=== PATIENT | male | born 1945 | race Caucasian/White ===

== ENCOUNTER 2016-11-08 10:18 | Inpatient (IN) ==
[2016-11-08] MEDS ORDERED: NITROGLYCERIN 2% OINT 1 INCH/GM PACK TOP STA (10:48)
[2016-11-08] MEDS ORDERED: MORPHINE 2 MG/1 ML SYRINGE IV PRN ×2 (10:48→14:57)
[2016-11-08] MEDS ORDERED: ASPIRIN 325 MG TABLET PO STA (10:48)
[2016-11-08] MEDS ORDERED: ONDANSETRON 4 MG/2 ML VIAL IV PRN ×2 (10:48→14:57)
[2016-11-08] MEDS ORDERED: NITROGLYCERIN SL 0.4 MG TABLET SL PRN (10:48)
[2016-11-08] MEDS ORDERED: ENOXAPARIN 100 MG/ML SYRINGE SUBCUT STA (10:48)
--- NOTE | 2016-11-08 10:51 | EKG Report ---
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
--- NOTE | 2016-11-08 10:54 | Emergency Department Note ---
Arrival - Arrival Chief Complaint: Chest Pain Stated Complaint: CHEST PAIN, SOB, CHEST PRESSURE ED Nursing Triage Note: Pt c/o Chest pressure, SOB, palpitations, and Dizziness x 1 month sent from [facility] for eval. Mode of Arrival: Ambulatory Time Seen by Provider: 11/08/16 10:48 - History of Present Illness Allergies/Adverse Reactions: Allergies Allergy/AdvReac Type Severity Reaction Status Date / Time IVP Dye Allergy ANAPHYLAXIS Uncoded 11/08/16 10:32 Medical,Surgical,& Family Hx - Medical History Cardio: History of: CAD Musculoskeletal: History of: Back/Neck Problems - Surgical History Cardiac Surgeries: Sugical HX of: Cardiac Catheterization (Stent) Abdominal Surgeries: Surgical HX of: Cholecystectomy Orthopedic Surgeries: Surgical HX of;: Spinal Surgery (back and neck surgery) - Social History Smoking Status: Never smoker Exam Vital Signs: Vital Signs Temperature 97.3 F L 11/08/16 10:44 Pulse Rate 60 11/08/16 10:44 Respiratory Rate 20 11/08/16 10:45 Blood Pressure 137/84 11/08/16 10:44 O2 Sat by Pulse Oximetry 99 11/08/16 10:28 Results - Labs Lab Results: I have reviewed the patients labs - EKG EKG results: interpreted by ERMD - Impressions EKG: Sinus bradycardia with a rate of 59, normal ST-T waves, normal axis. - Diagnostic Findings Procedure: Chest x-ray: image reviewed by me Disposition Clinical Impression: Coronary artery disease, Chest pain Case discussed with: patient, patient's family Disposition: Still a Patient Condition: Stable
--- NOTE | 2016-11-08 10:57 | Emergency Department Note ---
Jesusita Carmona Emily, am scribing for, and in the presence of, Keo Castle MD 10:56. Corrine Carmona James D, MD, personally performed the services described in this documentation, ascribed by Susan Mc in my presence, and it is both accurate and complete . Arrival - Arrival Chief Complaint: Chest Pain Stated Complaint: CHEST PAIN, SOB, CHEST PRESSURE ED Nursing Triage Note: Pt c/o Chest pressure, SOB, palpitations, and Dizziness x 1 month sent from [facility] for eval. Mode of Arrival: Ambulatory Limitations: No Limitations Source: Patient - History of Present Illness HPI Narrative: Pt is a 71 y/o male who came to ED with c/o chest tightness in ED but onset one month ago, but sent from [facility] for evaluation. Pt notes pain is sharp and has been intermittently. Pt denies smoking, DM, HTN. Pt states has no PCP. Pt states having chest pain with SOB, dizziness, and rapid palpitations during episode of pain. PMHx of stent done at [place] under supervision of Dr. Lilly in 2006. FMHx of mother had CAD in her 50-60s. Onset (ago): month(s) Consistency: intermittent Severity: mild, moderate Severity scale (1-10): 4 Quality: other (tightness) Allergies/Adverse Reactions: Allergies Allergy/AdvReac Type Severity Reaction Status Date / Time IVP Dye Allergy ANAPHYLAXIS Uncoded 11/08/16 10:32 Home Medications: Home Medications Medication Instructions Recorded Confirmed Type No Known Home Medications [No 11/08/16 11/08/16 History Known Home Medications] Review of System - Review of System 12 point system: reviewed and no additional remarkable complaints except as stated - Review of System Constitutional: Absent: fever Respiratory: Present: respiratory distress (SOB) Cardiovascular: Present: chest pain (tightness now in chest), palpitations ( rapid). Absent: dyspnea on exertion, syncope Gastrointestinal: Absent: abdominal pain, nausea, vomiting Musculoskeletal: Absent: arm pain, neck pain Skin: Absent: rash Neurological: Present: other (dizziness). Absent: headache Medical,Surgical,& Family Hx - Medical History Cardio: History of: CAD Musculoskeletal: History of: Back/Neck Problems - Surgical History Cardiac Surgeries: Sugical HX of: Cardiac Catheterization (Stent) Abdominal Surgeries: Surgical HX of: Cholecystectomy Orthopedic Surgeries: Surgical HX of;: Spinal Surgery (back and neck surgery) - Family History Family History: Reports;: Family Heart Disease (mother in her 50-60s with heart issues) - Social History Smoking Status: Never smoker Marital Status: Lives With:: Spouse Functional capacity: independent ambulation Exam Vital Signs: Vital Signs Temperature 97.3 F L 11/08/16 10:44 Pulse Rate 60 11/08/16 10:44 Respiratory Rate 20 11/08/16 10:45 Blood Pressure 137/84 11/08/16 10:44 O2 Sat by Pulse Oximetry 100 11/08/16 11:02 GENERAL: This is a well-nourished well-developed white male in no apparent distress. VITAL SIGNS: Reviewed HEENT: Head is atraumatic and normocephalic. Pupils are equal round react to light. Extraocular movements are intact. Oropharynx is benign with moist mucous membranes. NECK: Neck is soft and supple without tenderness. There are no masses. There is no lymphadenopathy. LUNGS: Lungs are clear to auscultation. Chest rises symmetrically. There is no chest wall tenderness. CV: Heart is regular rate and rhythm without murmurs rubs or gallops. ABDOMEN: Abdomen is soft, nontender to palpation. There are no abdominal abnormal masses palpated. There is no organomegaly. Bowel sounds are present and active. SKIN: Skin is warm and dry. No rash. EXTREMITIES: Patient has full range of motion without tenderness. There is no pedal edema. NEUROLOGIC: Awake alert and oriented 4. Cranial nerves II through XII are grossly intact. Motor is 5 over 5 in all extremities bilaterally. Course - Consultations Consultation #1: Discussed with hospitalist. Patient will be admitted to their service. Time: 12:45 Results - Labs CBC & BMP: 11/08/16 10:53 11/08/16 10:53 Lab Results: I have reviewed the patients labs Labs: Laboratory Tests 11/08/16 10:53 WBC 6.1 RBC 5.46 Hgb 16.2 Hct 47.0 MCV 86.1 L Plt Count 183 MPV 8.6 L Lymph % (Auto) 19.2 L Lymph # (Auto) 1.2 L Laboratory Tests 11/08/16 11/08/16 10:53 10:53 INR 1.0 PT Patient/Control Mix 11.1 Circ Anticoag PTT 28.4 Sodium 138 Potassium 4.6 Chloride 103 Carbon Dioxide 29 Anion Gap 10.6 BUN 16 Creatinine 1.10 GFR Calculation 83 BUN/Creatinine Ratio 14.00 Glucose 92 Calculated Osmolality 275.7 Calcium 8.9 Magnesium 2.4 Total Bilirubin 1.20 H AST 20 ALT 25 Alkaline Phosphatase 79 Total Protein 7.4 Albumin 4.0 Globulin 3.4 Albumin/Globulin Ratio 1.1 Lipase 184.0 Laboratory Tests 11/08/16 10:53 Troponin I < 0.015 - EKG EKG results: interpreted by ERMD - Impressions EKG: Sinus bradycardia with a rate of 59, nonspecific ST-T wave changes, normal axis. - Diagnostic Findings Procedure: Chest x-ray: image reviewed by me, report reviewed by me (No acute cardiopulmonary pathology identified. Coronary artery calcifications.) Disposition Clinical Impression: Coronary artery disease, Chest pain Disposition: Still a Patient Condition: Stable
[2016-11-08 11:06] LABS: Basophils % 0.7 % (0.0-0.8); Eosinophils # 0.2 10*3/uL (0.0-0.87); Eosinophils % 2.5 % (0.00-10.9); Hemoglobin 16.2 GM/DL (14.0-18.0); Immature Granulocytes % 0.2 %; Immature Granulocytes Absolute 0.01 #; Lymphocytes # 1.2 10*3/uL (1.4-4.0); Lymphocytes % 19.2 % (21.2-54.2); Mean Corpuscular HGB Conc 34.5 GM/DL (32-36); Mean Corpuscular Hemoglobin 30 PG (27-34); Mean Corpuscular Volume 86.1 FL (87-102); Mean Platelet Volume 8.6 FL (9.6-12.0); Monocytes # 0.5 10*3/uL (0.11-0.8); Monocytes % 8.2 % (1.7-12.7); Neutrophils # 4.2 10*3/uL (1.4-7.4); Neutrophils % 69.2 % (38.7-73.9); Platelet Count 183 T/CUMM (130-400); Red Blood Count 5.46 MC/CUMM (3.8-5.5); Red Cell Distribution Width 12.6 % (9.3-17.3); White Blood Count 6.1 T/CUMM (4-12)
[2016-11-08] MEDS ORDERED: ONDANSETRON 4 MG/2 ML VIAL ONE (11:06)
[2016-11-08] MEDS ORDERED: NITROGLYCERIN 2% OINT 1 INCH/GM PACK TOP ONE (11:06)
[2016-11-08] MEDS ORDERED: ASPIRIN 325 MG TABLET ONE (11:06)
[2016-11-08] MEDS ORDERED: ENOXAPARIN 100 MG/ML SYRINGE SUBCUT ONE (11:06)
[2016-11-08] MEDS ORDERED: MORPHINE 2 MG/1 ML SYRINGE ONE (11:06)
--- NOTE | 2016-11-08 11:22 | XRay Report ---
XR chest 2V Date: 11/08/2016 10:48 AM History: Chest pain Comparison: 05/05/2012 Technique: PA and lateral chest Findings: The heart is normal in size with coronary artery calcifications. Chronic scarring in the lungs with stable mediastinum. Degenerative changes with prior anterior cervical fusion. Impression: No acute cardiopulmonary pathology identified. Coronary artery calcifications. PROCEDURE INTERPRETED AT [facility] DEPARTMENT OF RADIOLOGY Final Report Signed by: Dr. Che Rg
[2016-11-08 11:40] LABS: Bilirubin,Total 1.2 MG/DL (0.2-1.0); Calcium 8.9 MG/DL (8.5-10.1); Magnesium 2.4 MG/DL (1.8-2.4); Osmolality,Calculated 275.7 MOS/KG (273-304); Potassium 4.6 MMOL/L (3.5-5.1); Total Protein 7.4 G/DL (6.4-8.3)
[2016-11-08 11:41] LABS: PT Patient Result 11.1 SECS; Partial Thromboplastin Time 28.4 SECS (0-40)
--- NOTE | 2016-11-08 13:50 | EKG Report ---
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
--- NOTE | 2016-11-08 13:50 | Hospitalist History & Physical ---
<Zonia Reed - Last Filed: 11/08/16 13:37> Assessment and Plan - Time spent with patient Time spent with patient: Greater than 30 minutes (1) Chest pain Status: Acute Assessment and plan: 11/08/16 Admit Supplemental Oxygen PRN Pain management Consult Cardiology Serial Troponin Repeat EKG Repeat A.m. Labs Will discuss with Dr Vieyra for further recommendations of care to follow. Current Visit: Yes (2) Coronary artery disease Status: Acute Assessment and plan: Stent x1 placed in 2006. Consult Cardiology. Current Visit: Yes History of Present Illness Chief complaint: chest tightness History of present illness: Mr. Baumann is a 71 year old white male w/PMHx Hiatal hernia and Cardiac stent x1 (2206) presented to the ED for further evaluation of 1 month of chest tightness associated with occasional chest pain and shortness of breath. He reports the tightness occurs at rest and with exertion. He reports an increase in swelling in his feet for the past month. He denies nausea, vomiting, fever, chills or cough. He reports heart catherization was done at [place] by Dr Lilly in 2006 with stent placement x1. Reports: Former smoker (quit 30 years ago), occasional glass of wine, and denies any drug use. 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 IN ED: EKG: Sinus bradycardia with rate 59. CXR: nothing acute. Troponin negative. Electrolytes within normal range. Renal function stable: BUN 16, Creatinine 1.10. He does not have a Primary Care Physician He does not follow with a ed tech. (it has been several years ago [id number] ?since he has seen Dr Lilly) After discussion with Dr Castle in the ED and Dr Vieyra with Hospital Medicine, it was agreed to admit patient for further evaluation of chest tightness and shortness of breath. There are NO home medications to be reviewed or reconciled. Patient reports he takes a Tums occasionally for acid reflux and he takes an Aspirin when he remembers but does not remember very often (been over a month since last ASA taken). Home Medications Medication Instructions Recorded Confirmed Type No Known Home Medications [No 11/08/16 11/08/16 History Known Home Medications] Allergies Allergy/AdvReac Type Severity Reaction Status Date / Time IVP Dye Allergy ANAPHYLAXIS Uncoded 11/08/16 10:32 Medical,Surgical,& Family Hx - Medical History Cardio: History of: CAD (Stent x1 placed in 2006) Gastrointestinal: History of: GI Problems (Hiatal Hernia) Musculoskeletal: History of: Back/Neck Problems - Surgical History Cardiac Surgeries: Sugical HX of: Cardiac Catheterization (Stent x1 (2006)) Abdominal Surgeries: Surgical HX of: Cholecystectomy Orthopedic Surgeries: Surgical HX of;: Spinal Surgery (back and neck surgery) - Family History Family History: Reports;: Family Heart Disease (mother in her 50-60s with heart issues, Brother and sister = CHF) - Social History Smoking Status: Former smoker (Quit Smoking 30 years ago) Frequency of Alcohol Use: Rarely (Glass of wine very rare) Type of Drug Use: None Marital Status: Lives With:: Spouse Functional capacity: independent ambulation 12 point system: reviewed and no additional remarkable complaints except as stated Exam - Constitutional Vitals: Period Temp Pulse Resp BP Sys/Cuevas Pulse Ox Last 24 Hr 97.3 F-97.3 F 60-60 20-20 137-137/84-84 99-100 General appearance: normal weight, no acute distress - Head Head exam: Present: normal inspection - Eye Eye exam: Present: EOMI, other (Wear Glasses) Pupils: Present: JERARDO - Neck Neck exam: Present: normal inspection. Absent: thyromegaly - Respiratory Respiratory exam: Present: clear to auscultation bilaterally. Absent: rhonchi, stridor, wheezes - Cardiovascular Cardiovascular exam: Present: regular rate and rhythm - GI/Abdominal GI/Abdominal exam: Present: normal bowel sounds, soft. Absent: tenderness, rebound - Extremities Exam Extremities exam: Present: normal inspection, full ROM, edema (trace) - Neurological Exam Neurological exam: Present: alert, oriented X3 - Psychiatric Psychiatric exam: Present: normal affect, normal mood. Absent: agitated, anxious - Skin Skin exam: Present: normal color, warm, dry Results - Labs CBC & BMP: 11/08/16 10:53 11/08/16 10:53 Lab Results: I have reviewed the past 24 hour labs - EKG EKG results: interpreted by SHARAD <Elan Vieyra - Last Filed: 11/08/16 16:13> History of Present Illness History of present illness: Patient seen and examined independently of YARD FOREMAN Reed, agree with history, assessment and plan as documented. Patient reports chest tightness ongoing for over a month, he denies any worsening of this pain to me today. He does reports having a stent placed in 2006. He also reports taking lipitor and being taken off due to elevated liver enzymes. He also reports daily bilateral lower extremity edema. Troponin negative x2. Given his history, will consult cardiology. Exam - Constitutional Vitals: Period Temp Pulse Resp BP Sys/Cuevas Pulse Ox Last 24 Hr 97.3 F-97.8 F 60-61 18-20 111-137/72-84 95-100 Results - Labs CBC & BMP: 11/08/16 10:53 11/08/16 10:53
[2016-11-08] MEDS ORDERED: ACETAMINOPHEN 325 MG TABLET PO PRN (14:57)
[2016-11-08 15:33] LABS: Risk Ratio 4.69; VLDL CHOLESTEROL 18.4 MG/DL
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
[2016-11-08] MEDS: SODIUM CHLORIDE 0.9% 1,000 ML IV SCH (16:04)
[2016-11-08 16:49] LABS: Troponin I Only < 0.015 NG/ML (0.00-0.045)
[2016-11-08] MEDS ORDERED: diphenhydrAMINE CAP 25 MG CAPSULE PO ONE (17:01)
[2016-11-08] MEDS ORDERED: MAGNESIUM SULF RIDER 2 GM in PREMIX 1 EACH IV PRN ×2 (17:01→17:35)
[2016-11-08] MEDS ORDERED: DIAZEPAM 5 MG TABLET PO ONE (17:01)
[2016-11-08] MEDS ORDERED: POTASSIUM CHLORIDE RIDER 10 MEQ in PREMIX 1 EACH IV PRN ×2 (17:01→17:35)
--- NOTE | 2016-11-08 17:33 | History and Physical Update ---
Sedation H&P Update - History and Physical H&P was reviewed, the patient examined and there: are no changes in the patients condition since last H&P was completed. - Dictation Physical: refer to H&P completed by admitting physician - Physical Exam Mental Status: alert and oriented Heart: regular rate and rhythm Lung: clear to auscultation Abdomen: within normal limits Vitals: within normal limits - Sedation Plan for Sedation: moderate Patient Consent: Procedure disscussed with patient and patinet has consented., Risks and benefits were discussed with patient,including infection,, bleeding, injury to surrounding structures, seizure, temporary nerve, Patient understands and accepts potential risks/benefits and agrees to, proceed. ASA Class: II Airway Assessment: Class II: Soft palate, uvula, fauces visible
[2016-11-08 17:53] LABS: INR 1.1; PT Patient Result 11.3 SECS
[2016-11-08 19:22] LABS: Troponin I Only < 0.015 NG/ML (0.00-0.045)
[2016-11-08] MEDS: ROSUVASTATIN 20 MG TABLET PO SCH (21:10)
[2016-11-08 22:20] LABS: Troponin I Only < 0.015 NG/ML (0.00-0.045)
[2016-11-09] MEDS: SODIUM CHLORIDE 0.9% 1,000 ML IV SCH ×2 (02:08→16:09)
[2016-11-09] MEDS: ROSUVASTATIN 20 MG TABLET PO SCH ×2 (02:18→21:47)
[2016-11-09 06:11] LABS: Basophils % 0.7 % (0.0-0.8); Eosinophils # 0.2 10*3/uL (0.0-0.87); Eosinophils % 3.9 % (0.00-10.9); Hematocrit 41.6 VOL% (42.0-52.0); Hemoglobin 14.6 GM/DL (14.0-18.0); Immature Granulocytes % 0.2 %; Immature Granulocytes Absolute 0.01 #; Lymphocytes % 17.5 % (21.2-54.2); Mean Corpuscular HGB Conc 35.1 GM/DL (32-36); Mean Corpuscular Hemoglobin 31 PG (27-34); Mean Corpuscular Volume 86.8 FL (87-102); Mean Platelet Volume 9.1 FL (9.6-12.0); Monocytes # 0.6 10*3/uL (0.11-0.8); Monocytes % 9.9 % (1.7-12.7); Neutrophils % 67.8 % (38.7-73.9); Platelet Count 171 T/CUMM (130-400); Red Blood Count 4.79 MC/CUMM (3.8-5.5); Red Cell Distribution Width 12.5 % (9.3-17.3); White Blood Count 5.9 T/CUMM (4-12)
[2016-11-09 06:51] LABS: Albumin 3.4 G/DL (3.4-5.0); Bilirubin,Total 0.8 MG/DL (0.2-1.0); Calcium 8.4 MG/DL (8.5-10.1); Osmolality,Calculated 280.4 MOS/KG (273-304); Potassium 4.8 MMOL/L (3.5-5.1); Total Protein 6.1 G/DL (6.4-8.3)
--- NOTE | 2016-11-09 07:32 | EKG Report ---
Stationary ECG Study [facility] Test Date: 11/09/2016 7:30:24 AM Pat Name: BELINDA YODER Department: Room: 279 Gender: M Pharmacy Affairs Assistant: SAE : 1945 Requested by: Zonia Reed Order Number: [id number] Reading MD: SHARON VARGAS Intervals [place] Rate: 57 P: 34 CT: 137 QRS: 71 QRSD: 91 T: -7 QT: 400 QTc: 395 Interpretive Statements SINUS RHYTHM Electronically Signed On 11-10-16 15:39:06 CDT by SHARON VARGAS [email or web address]
[2016-11-09] MEDS ORDERED: diphenhydrAMINE CAP 25 MG CAPSULE PO ONE (08:00)
[2016-11-09] MEDS ORDERED: DIAZEPAM 5 MG TABLET PO ONE (08:00)
--- NOTE | 2016-11-09 08:02 | EKG Report ---
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
[2016-11-09] MEDS: PANTOPRAZOLE 40 MG TABLET PO SCH (08:54)
[2016-11-09] MEDS: ASPIRIN EC 81 MG TABLET PO SCH (08:54)
[2016-11-09] MEDS ORDERED: LIDOCAINE 1% 20 ML VIAL ONE (09:16)
[2016-11-09] MEDS ORDERED: HEPARIN/NACL 0.9% 2 UNITS/ML 1,000 ML IV ONE (09:16)
[2016-11-09] MEDS ORDERED: MIDAZOLAM 2 MG/2 ML VIAL ONE (09:31)
[2016-11-09] MEDS ORDERED: HYDROmorphone 2 MG/1 ML VIAL ONE (09:31)
[2016-11-09] MEDS ORDERED: diphenhydrAMINE 50 MG/1 ML VIAL ONE (09:36)
[2016-11-09] MEDS ORDERED: BIVALIRUDIN 250 MG VIAL IV ONE (10:06)
[2016-11-09] MEDS ORDERED: TICAGRELOR 90 MG TABLET ONE (10:40)
[2016-11-09] MEDS ORDERED: ZALEPLON 5 MG CAPSULE PO PRN (11:04)
--- NOTE | 2016-11-09 11:04 | Cardiac Catheterization ---
Date of Procedure:: 11/09/16 Pre-op Diagnosis: Chest pain CAD Post-op diagnosis: same Procedure: Cardiac catheterization procedure note #1 left heart catheterization #2 selective coronary angiography #3 left ventriculography #4 successful proximal LAD stent 2 Omnipaque was used to proceed Description of procedure Following sterile preparation draping of the right groin, local anesthesia was achieved by infiltration with 1% Xylocaine. Using a Cook needle the right femoral artery was cannulated and a #6 sheath was inserted. A 6 [place] pigtail catheter was introduced and advanced retrograde across aortic valve into the left pedicle and the end-diastolic pressure was recorded. Left ventriculography was performed the WATTERS projection using 24 cc of contrast. A pullback was made across aortic valve. The pigtail catheter change for a 6 [place] left Kayleigh catheter and left coronary angiography was performed in several WATTERS and WOLOF projections. The catheter change for a 6 [place] right Amplatz catheter and right coronary angiography was performed in the WOLOF projection only. The catheter change for a 6 [place] left Kayleigh guiding catheter in the left main was recannulated. The patient was bolused with Angiomax and placed on infusion per protocol. A Sure Chill-water flex wire was used and carefully advanced into the distal LAD. Direct stenting was performed using a 3.25 x 18 and 3.25 x 15 mL Alpine Zions drug-eluting stent in overlapping fashion. The maximum patient pressure was 17 temperatures for 30 seconds, creating a 3.50 mm lumen. The balloon was then deflated and brought back into the guiding catheter going to guidewire across the lesion. Repeat angiography in WATTERS and WOLOF projection confirmed a widely patent vessel with mild residual narrowing, no dissection, and brisk runoff. The guiding catheter and sheath were then removed and the femoral arteriotomy site was sealed percutaneous a minx closure device with prompt cessation of bleeding and prompt return of normal for pulses. The patient transferred back to telemetry in stable condition. Hemodynamic data Aortic pressure 107/60 mean of 82 Left ventricle 107/12 Selective coronary angiography The left main trunk is widely patent bifurcates. The LAD is a large vessel wraps on the apex. There is long 80% in-stent restenosis in the proximal vessel. The small diagonal branch is patent. The circumflex system has mild diffuse irregularities only. The dominant coronary artery is widely patent with mild diffuse disease only. Left ventriculography Ejection fraction 50% with low normal systolic function. No wall motion abnormalities. No mitral regurgitation. Conclusions #1 LVEDP 12 #2 ejection fraction 50% no wall motion abnormalities #3 no mitral regurgitation #4 no aortic valve gradient #5 left main trunk-patent #6 LAD-long 80% in-stent restenosis proximal vessel #7 diagonal-small, patent #8 circumflex system-mild irregularities #9 dominant right coronary-mild irregularities #10 successful proximal LAD stent 2 for severe in-stent restenosis. A 3.25 x 18 and 3.25 x 15 mm Zions drug-eluting stents were placed in overlapping fashion. The maximum inflation pressure was 17 shlomo for 30 seconds, creating a 3.50 mm lumen. Excellent angiographic result obtained. Disposition The patient status post LAD stents 2006 at [place]. He presents with recurrent angina and has long in-stent restenosis. The proximal LAD was restented with a 3.25 x 18 and 3.25 x 15 mm Alpine Zions drug-eluting stents in overlapping fashion. The maximum inflation pressure was 17 shlomo for 30 seconds, creating a 3.50 mm lumen. Excellent result obtained. He remain on normal saline hydration and time will continue aspirin Brilinta and statin therapy. A BMP CPK troponin rechecked in the morning. Cine pictures were reviewed with his . In addition, he will require aggressive lifestyle changes and risk factor modification. Implants: Successful approximately stent 2 for severe in-stent restenosis. 3.25 x 18 and 3.25 x 15 mm Alpine Zions drug-coated stents, Post dilated 17 shlomo, creating a 3.50 mm lumen. Good result obtained. Anesthesia: moderate conscious sedation Surgeon / Physician: Omar Nguyen Estimated blood loss: minimal Condition: stable Disposition: floor - Medications / Follow-up
--- NOTE | 2016-11-09 11:19 | EKG Report ---
Stationary ECG Study [facility] Test Date: 11/09/2016 11:18:17 AM Pat Name: BELINDA YODER Department: Room: 279 Gender: M Care Rep: OSMIN : 1945 Requested by: Sharon Nguyen Order Number: [id number] Reading MD: SHARON NGUYEN Intervals [place] Rate: 51 P: 28 CT: 153 QRS: 59 QRSD: 105 T: 43 QT: 412 QTc: 388 Interpretive Statements SINUS BRADYCARDIA Electronically Signed On 11-10-16 15:45:32 CDT by SHARON NGUYEN [id number]
--- NOTE | 2016-11-09 16:04 | Hospitalist Progress Note ---
Assessment and Plan (1) Coronary artery disease Status: Chronic Assessment and plan: S/p LAD stent in 2006 Cath today with restenosis of LAD, drug eluting stent today On Brilinta Cardiology managing Current Visit: Yes (2) Chest pain Status: Resolved Current Visit: Yes (3) Dyslipidemia Status: Acute Current Visit: Yes Hospitalist: Subjective Interval history: No acute events overnight. Patient seen after his heart cath today. He denies chest pain and sob. Exam - Constitutional Vitals: Period Temp Pulse Resp BP Sys/Cuevas Pulse Ox Last 24 Hr 97.1 F-98.0 F 52-62 16-20 96-127/49-78 90-98 General appearance: normal weight - Head Head exam: Present: normocephalic, atraumatic - Eye Eye exam: Present: EOMI Pupils: Present: JERARDO - ENT ENT exam: Present: normal exam - Neck Neck exam: Present: normal inspection - Respiratory Respiratory exam: Present: clear to auscultation bilaterally. Absent: rhonchi, wheezes - Cardiovascular Cardiovascular exam: Present: regular rate and rhythm - GI/Abdominal GI/Abdominal exam: Present: normal bowel sounds, soft. Absent: tenderness, rebound - Extremities Exam Extremities exam: Present: normal inspection - Back Exam Back exam: Present: normal inspection - Neurological Exam Neurological exam: Present: alert, oriented X3 - Psychiatric Psychiatric exam: Present: normal affect, normal mood - Skin Skin exam: Present: warm, intact Results - Labs CBC & BMP: 11/09/16 05:15 11/09/16 05:15 Specialty Discharge - Follow Up or Referrals
--- NOTE | 2016-11-09 17:33 | ECHO Report ---
Felicitas Baumann Exam Date: 11/09/2016 07:32 Referring Physician: Technologist: Jessica Ayala RDCS Age: 71 Ht (in): 68 Wt (lb): 221 Gender: M Exam Location: [facility] Echo Indications: Chest pain, unspecified, CAD with previous stent, Dyslipidemia BP: 113 / 58 HR: 60 Rhythm: Sinus Technical Quality: Very technically difficult study IMPRESSIONS Very technically difficult study. Left ventricular ejection fraction is estimated at 60 %. Mild concentric left ventricular hypertrophy. The right heart appears mildly enlarged. Mild tricuspid valve regurgitation. MEASUREMENTS (Male / Female) Normal Values 2D ECHO LV Diastolic Diameter PLAX 4.0 cm 4.2 - 5.9 / 3.9 - 5.3 cm LV Systolic Diameter PLAX 2.7 cm LV Fractional Shortening PLAX 32.1 % IVS Diastolic Thickness 1.3 cm 0.6 - 1.0 / 0.6 - 0.9 cm LVPW Diastolic Thickness 1.3 cm 0.6 - 1.0 / 0.6 - 0.9 cm RV Internal Dim ED PLAX 3.8 cm Aortic Root Diameter 3.3 cm LA Systolic Diameter LX 3.8 cm 3.0 - 4.0 / 2.7 - 3.8 cm DOPPLER TR Peak Velocity 288.0 cm/s TR Peak Gradient 33.2 mmHg FINDINGS Left Ventricle Normal left ventricular cavity size. Mild concentric left ventricular hypertrophy. Left ventricular ejection fraction is estimated at 60 %. Right Ventricle Mildly increased right ventricular size. Right Atrium The right atrium is mildly enlarged. Left Atrium The left atrium is normal in size. Mitral Valve Grossly normal mitral valve without significant stenosis or prolapse. There is no mitral regurgitation. Aortic Valve Grossly normal aortic valve without significant sclerosis or stenosis. There is no aortic regurgitation. Tricuspid Valve Grossly normal tricuspid valve. Mild tricuspid valve regurgitation. Tricuspid regurgitation velocities suggest a PAP of 43 mmHg. Pulmonic Valve Morphologically normal pulmonic valve without significant stenosis. There is no pulmonic regurgitation. Pericardium Normal pericardium without effusion. Aorta Normal ascending aorta dimension. Breezy Diane (Electronically Signed) Final Date: 09 November 2016 17:32
[2016-11-09] MEDS: TICAGRELOR 90 MG TABLET PO SCH (21:42)
[2016-11-10 05:59] LABS: Basophils % 0.5 % (0.0-0.8); Eosinophils # 0.3 10*3/uL (0.0-0.87); Eosinophils % 3.2 % (0.00-10.9); Hematocrit 42.2 VOL% (42.0-52.0); Hemoglobin 14.8 GM/DL (14.0-18.0); Immature Granulocytes % 0.4 %; Immature Granulocytes Absolute 0.03 #; Lymphocytes # 1.3 10*3/uL (1.4-4.0); Lymphocytes % 16.2 % (21.2-54.2); Mean Corpuscular HGB Conc 35.1 GM/DL (32-36); Mean Corpuscular Hemoglobin 30 PG (27-34); Mean Corpuscular Volume 85.6 FL (87-102); Mean Platelet Volume 9.2 FL (9.6-12.0); Monocytes # 0.7 10*3/uL (0.11-0.8); Monocytes % 9.3 % (1.7-12.7); Neutrophils # 5.5 10*3/uL (1.4-7.4); Neutrophils % 70.4 % (38.7-73.9); Platelet Count 187 T/CUMM (130-400); Red Blood Count 4.93 MC/CUMM (3.8-5.5); Red Cell Distribution Width 12.6 % (9.3-17.3); White Blood Count 7.8 T/CUMM (4-12)
[2016-11-10 06:28] LABS: Calcium 8.6 MG/DL (8.5-10.1); Magnesium 2.4 MG/DL (1.8-2.4); Osmolality,Calculated 281.3 MOS/KG (273-304); Potassium 4.1 MMOL/L (3.5-5.1)
[2016-11-10 06:38] LABS: Blood Urea Nitrogen 16 MG/DL (7-18); Calcium 8.6 MG/DL (8.5-10.1); Glucose 100 MG/DL (74-106); Osmolality,Calculated 279.4 MOS/KG (273-304); Sodium 140 MMOL/L (136-145)
[2016-11-10 06:39] LABS: Troponin I Only 0.063 NG/ML (0.00-0.045)
[2016-11-10] MEDS: SODIUM CHLORIDE 0.9% 1,000 ML IV SCH ×2 (07:53→07:54)
--- NOTE | 2016-11-10 07:58 | EKG Report ---
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
[2016-11-10] MEDS: PANTOPRAZOLE 40 MG TABLET PO SCH (09:08)
[2016-11-10] MEDS: TICAGRELOR 90 MG TABLET PO SCH (09:08)
[2016-11-10] MEDS: ASPIRIN EC 81 MG TABLET PO SCH (09:08)
--- NOTE | 2016-11-10 09:16 | Cardiology Progress Note ---
Assessment and Plan (1) Status post coronary artery stent placement Status: Acute Assessment and plan: SEE PLAN OF CARE LISTED BELOW Current Visit: Yes (2) Chest pain Status: Resolved Assessment and plan: SEE PLAN OF CARE LISTED BELOW. Current Visit: Yes (3) Coronary artery disease Status: Chronic Assessment and plan: SEE PLAN OF CARE LISTED BELOW. Current Visit: Yes (4) History of esophageal stricture Status: Chronic Assessment and plan: SEE PLAN OF CARE LISTED BELOW. Current Visit: Yes (5) Dyslipidemia Status: Acute Current Visit: Yes Cardiology - PN: Subj Interval history: MANAGER IMAGE: Jordy in remote past. New to [facility] cardiology, Dr. Diane PCP: None Mr. Baumann is a 71 year old male with known history of coronary artery disease , not routinely followed by cardiology. Patient has cardiac surgery significant for known CAD, advanced age, former smoker (quit 30 years ago) and obesity. Patient has a past medical history of hiatal hernia and esophageal stricture (reports that he last had his esophagus dilated 5 years ago). He does not have a PCP. Does not take any medications at home. Reports that he takes aspirin occasionally, when he remembers. He has not followed up with Dr. Lilly in several years. He does report that he had a Lexiscan nuclear stress test approximately 5 years ago at the [place]. Per his report, this was normal. He had an echocardiogram performed February 2013 which revealed preserved systolic function, ejection fraction estimated at 65%. Patient presented to [facility] with complaints of chest heaviness for the past couple of months that progressively worsened the past 4 weeks. Cardiac biomarkers negative. EKG benign. However, with patient's history of coronary artery disease it was felt that patient would best benefit from heart catheterization. Patient underwent heart catheterization November [address] Toribio Nguyen with the following impressions noted: Conclusions #1 LVEDP 12 #2 ejection fraction 50% no wall motion abnormalities #3 no mitral regurgitation #4 no aortic valve gradient #5 left main trunk-patent #6 LAD-long 80% in-stent restenosis proximal vessel #7 diagonal-small, patent #8 circumflex system-mild irregularities #9 dominant right coronary-mild irregularities #10 successful proximal LAD stent 2 for severe in-stent restenosis. A 3.25 x 18 and 3.25 x 15 mm Zions drug-eluting stents were placed in overlapping fashion. The maximum inflation pressure was 17 shlomo for 30 seconds, creating a 3.50 mm lumen. Excellent angiographic result obtained. DISPOSITION The patient status post LAD stents 2006 at [place]. He presents with recurrent angina and has long in-stent restenosis. The proximal LAD was restented with a 3.25 x 18 and 3.25 x 15 mm Alpine Zisheela drug-eluting stents in overlapping fashion. The maximum inflation pressure was 17 shlomo for 30 seconds, creating a 3.50 mm lumen. Excellent result obtained. He remain on normal saline hydration and time will continue aspirin Brilinta and statin therapy. A BMP CPK troponin rechecked in the morning. Cine pictures were reviewed with his . In addition, he will require aggressive lifestyle changes and risk factor modification. 2016 UPDATE: Patient was seen and examined on the telemetry unit. Post heart catheterization patient has done well without complications. He has been without complaints of chest pain, heaviness or tightness. He denies shortness of breath. Right groin is soft without bleeding, hematoma and bruit. Distal pulses 2+. Patient has ambulated around the room and down the fuentes without difficulty. Right groin has remained stable post ambulation. Right groin precautions have been reviewed with the patient. He verbalized understanding. I have also discussed the importance of absolute compliance with dual antiplatelet therapy. He has verbalized understanding. He has been given a written prescription for Brilinta with refills (1 year supply). Heart rate will not tolerate initiation of beta blockade. Hopeful that this can be initiated as an outpatient. Lipid panel was completed. LDL 156. Patient was started on statin this hospitalization. However, patient has declined this medication as he has had trouble with this in the past. He reports that he has had elevated liver enzymes. For this reason, patient refuses to take this medication. Statin can possibly be challenged as an outpatient. Patient is able for discharge home from a cardiac standpoint. Patient has been given a follow-up appointment with Dr. Diane in 2 weeks with EKG, BMP and CBC. IMPRESSION AND PLAN 1. STATUS POST PCI TO PROXIMAL LAD- Underwent heart catheterization yesterday per Dr. Toribio Nguyen. He received drug-eluting stent 2 to proximal LAD. Tolerated well. Continue dual antiplatelet therapy. He has been given a 1 year supply of Brilinta ([facility] Unable to tolerate beta-blockade and lipid-lowering agent as described above. Patient is stable to be discharged home from a cardiac standpoint. He has been given a follow-up appointment with Dr. Diane in 2 weeks with EKG, BMP and CBC. 2. HISTORY OF CAD - Per patient report, he has a history of CAD. Received coronary stent in [address] [facility]. 3. DYSLIPIDEMIA - Lipid panel has been reviewed. LDL is above goal. I have added Crestor. However, patient has refused to take this medication as he has had trouble with statins in the past. He reports that he has had elevated liver enzymes. For this reason, patient refuses to take this medication. Statin can possibly be challenged as an outpatient. 4. HISTORY OF ESOPHAGEAL STRICTURE - Patient may benefit from esophageal dilatation. Defer to attending. Exam (Progress Note) - Constitutional Vitals: Period Temp Pulse Resp BP Sys/Cuevas Pulse Ox Last 24 Hr 97.3 F-98.0 F 52-64 16-20 96-142/51-78 93-98 Exam: General: Appears well with no apparent distress. Pleasant and cooperative. Appears comfortable. Obese. HEENT: PERRL, normocephalic, atraumatic. Mucous membranes moist. No jaundice noted. Conjunctiva moist and clear, sclerae anicteric Neck: No JVD/HJR, no thyromegaly or lymphadenopathy noted. No carotid bruit appreciated Cardiac: Regular rate and rhythm. No murmur rub or gallop. Lungs: Clear to auscultation without accessory muscle use to assist the respiratory pattern. Not requiring oxygen. Abdomen: Soft, bowel sounds normoactive. Nontender and nondistended. No abdominal bruit or thrill noted. No masses noted. Extremities: No clubbing, cyanosis noted. No edema noted. Upper extremity pulses 2+. Lower extremity pulses 2+. Capillary refill less than 3 seconds. Right groin soft without bleeding, hematoma and bruit. Distal pulses 2+. Skin: No unusual lesions or rashes. No skin breakdown appreciated. Neuro: Awake, alert and oriented 3. Moves all extremities well without hemiparesis or paralysis. No essential tremor is appreciated. Result/EKG - Labs CBC & BMP: 11/10/16 05:11 11/10/16 05:12 Lab Results: I have reviewed the past 24 hour labs Labs: Laboratory Results - last 24 hr 11/10/16 11/10/16 11/10/16 05:11 05:11 05:12 WBC 7.8 D RBC 4.93 Hgb 14.8 Hct 42.2 MCV 85.6 L MCH 30 MCHC 35.1 RDW 12.6 Plt Count 187 MPV 9.2 L Neut % (Auto) 70.4 Lymph % (Auto) 16.2 L [place] % (Auto) 9.3 Eos % (Auto) 3.2 Baso % (Auto) 0.5 Neut # (Auto) 5.5 Lymph # (Auto) 1.3 L [place] # (Auto) 0.7 Eos # (Auto) 0.3 Baso # (Auto) 0.0 Immature Gran % 0.4 Nucleated RBC % 0.0 Immature Gran # 0.03 Nucleated RBCs # 0.00 Immature Plt Fraction 0.0 Sodium 141 140 Potassium 4.1 4.0 Chloride 106 105 Carbon Dioxide 27 28 Anion Gap 12.1 11.0 BUN 16 16 Creatinine 1.20 1.20 GFR Calculation 75 75 BUN/Creatinine Ratio 13.00 13.00 Glucose 102 100 Calculated Osmolality 281.3 279.4 Calcium 8.6 8.6 Magnesium 2.4 Total Creatine Kinase 62 D CK-MB (CK-2) 1.4 Troponin I 0.063 H D Specialty Discharge - Follow Up or Referrals Follow up with: Breezy Diane MD [Physician] - 2 Weeks (ekg, cbc, bmp )
--- NOTE | 2016-11-10 11:00 | Discharge Summary ---
Hospital Course - Hospital Course Hospital Course: 71 year old white male w/PMHx Hiatal hernia and Cardiac stent x1 (2006) presented to the ED for further evaluation of 1 month of chest tightness associated with occasional chest pain and shortness of breath. He was admitted to the hospitalist service for further evaluation. Serial troponins were negative x3. Cardiology was consulted given his history. Cardiac cath with in- stent restenosis, his proximal LAD was restented with drug-eluting stents. He was started on Brilinta. Patient has a history of liver enzyme elevation on statins. Cardiology attempted to start him on a statin, which he refused for this reason. Patient's heart rate will not tolerate the initiation of a beta jenny. He has now reached maximal benefit of inpatient stay and will be discharged to home. - Time spent with patient Time with patient DS: Greater than 30 minutes (35) Diagnosis - Discharge Diagnosis (1) Coronary artery disease Status: Chronic (2) Chest pain Status: Resolved (3) Dyslipidemia Status: Chronic Specialty Discharge - Follow Up or Referrals Follow up with: Breezy Diane MD [Physician] - 2 Weeks (ekg, cbc, bmp ) Discharge Plan - Discharge Data Disposition: Disch To Home/Self Care Condition at Discharge: Stable Discharge Diet: heart healthy Activity: increase activity as tolerated Hygiene: no restrictions Weight Bearing at Discharge: weight bear as tolerated Driving: no restrictions Contact your physician if you experience:: Shortness of breath, pain uncontrolled by pain medications - Discharge Medications New Aspirin EC Tab 81 mg PO DAILY tablet Nitroglycerin Sl Tab [Nitrostat] 0.4 mg SL Q5M PRN #30 tablet PRN Reason: Chest Pain Ticagrelor [Brilinta] 90 mg PO BID tablet - Follow Up or Referral Follow Up: Breezy Diane MD [Physician] - 2 Weeks (ekg, cbc, bmp ) - Forms/Instructions Instructions: Coronary Artery Disease (GEN), Left Heart Catheterization (DC), Heart Healthy Diet (GEN), Coronary Intravascular Stent Placement (DC) Exam - Constitutional Vitals: Period Temp Pulse Resp BP Sys/Cuevas Pulse Ox Last 24 Hr 97.3 F-98.0 F 52-64 16-20 96-142/51-78 93-98 General appearance: over weight - Head Head exam: Present: normocephalic, atraumatic - Eye Eye exam: Present: EOMI Pupils: Present: JERARDO - ENT ENT exam: Present: normal exam - Neck Neck exam: Present: normal inspection - Respiratory Respiratory exam: Present: clear to auscultation bilaterally. Absent: rhonchi, wheezes - Cardiovascular Cardiovascular exam: Present: regular rate and rhythm - GI/Abdominal GI/Abdominal exam: Present: normal bowel sounds, soft. Absent: tenderness, rebound - Extremities Exam Extremities exam: Present: normal inspection - Back Exam Back exam: Present: normal inspection - Neurological Exam Neurological exam: Present: alert, oriented X3 - Psychiatric Psychiatric exam: Present: normal affect, normal mood - Skin Skin exam: Present: warm, intact Discharge Results Procedures and tests throughout hospitalization: Pending Orders 11/08/16 10:48 Urinalysis Stat Labs on day of discharge: Labs from last 24 hours 11/10/16 11/10/16 11/10/16 05:12 05:11 05:11 WBC 7.8 D RBC 4.93 Hgb 14.8 Hct 42.2 MCV 85.6 L MCH 30 MCHC 35.1 RDW 12.6 Plt Count 187 MPV 9.2 L Neut % (Auto) 70.4 Lymph % (Auto) 16.[address] [place] % (Auto) 9.3 Eos % (Auto) 3.2 Baso % (Auto) 0.5 Neut # (Auto) 5.5 Lymph # (Auto) 1.[address] [place] # (Auto) 0.7 Eos # (Auto) 0.3 Baso # (Auto) 0.0 Immature Gran % 0.4 Nucleated RBC % 0.0 Immature Gran # 0.03 Nucleated RBCs # 0.00 Immature Plt Fraction 0.0 Sodium 140 141 Potassium 4.0 4.1 Chloride 105 106 Carbon Dioxide 28 27 Anion Gap 11.0 12.1 BUN 16 16 Creatinine 1.20 1.20 GFR Calculation 75 75 BUN/Creatinine Ratio 13.00 13.00 Glucose 100 102 Calculated Osmolality 279.4 281.3 Calcium 8.6 8.6 Magnesium 2.4 Total Creatine Kinase 62 D CK-MB (CK-2) 1.4 Troponin I 0.063 H D DS: Provider Date of admission: 11/08/16 13:08 Primary care physician: . No PCP Attending physician on admission: Elan Vieyra MD Consults: 11/08/16 14:57 Consult to Case Mgmt/Social Srvs [CONS] Routine Reason for Case Mgmt/Social Srvs: Discharge Planning Consult to Physician [CONS] Routine Comment: Consulting Provider: Breezy Diane When should Consulting Provider be notified: Now Person Notified: Kimberley Date Notified: 11/08/16 Time Notified: 15:20 Consult Notification Comment: 11/09/16 11:04 Consult to Cardiac Rehabilitation [CONS] Routine Reason for Cardiac Rehabilitation: Risk Factor Modification Other Consult Comment: Evaluate and recommend Discharging clinician: Elan Vieyra MD
[2016-11-10 11:53] VITALS: BP 115/72
== END 2016-11-10 14:34 | disposition home or self-care (01) | DRG 249 ==
LOC: N.ED 10:18 → N.EDINP 13:16 → N.TELES 14:44
PROVIDERS: ADMIT Internal Medicine; ATTEND Internal Medicine
PROC: CLCCHCL (ICD-10-PCS; 2016-11-09 10:15)